=== PATIENT | male | born 1935 | race Caucasian/White ===

== ENCOUNTER 2016-10-27 08:36 | Outpatient (CLI) | END 2016-10-27 08:37 | disposition home or self-care (01) | LOC: AMBL 08:36 | PROVIDERS: ATTEND Emergency Medicine | DX: R07.9 Chest pain, unspecified (principal); R19.7 Diarrhea, unspecified; C34.90 Malignant neoplasm of unspecified part of unspecified bronchus or lung; E86.0 Dehydration; Z99.81 Dependence on supplemental oxygen; Z95.1 Presence of aortocoronary bypass graft; Z95.5 Presence of coronary angioplasty implant and graft; Z79.899 Other long term (current) drug therapy ==

== ENCOUNTER 2016-10-29 12:06 | Outpatient (CLI) ==
[2016-10-29] MEDS: NEUPOGEN SUBCUT STA (12:19)
== END 2016-10-29 12:07 | disposition home or self-care (01) ==
LOC: OPMED 12:06
PROVIDERS: ATTEND Internal Medicine Hematology & Oncology
DX: C34.92 Malignant neoplasm of unspecified part of left bronchus or lung (principal); D70.1 Agranulocytosis secondary to cancer chemotherapy
CPT/HCPCS: 96372

== ENCOUNTER 2016-10-30 13:01 | Outpatient (CLI) ==
[2016-10-30] MEDS ORDERED: NEUPOGEN ONE (13:11)
[2016-10-30] MEDS: NEUPOGEN SUBCUT STA (13:13)
== END 2016-10-30 13:02 | disposition home or self-care (01) ==
LOC: OPMED 13:01
PROVIDERS: ATTEND Internal Medicine Hematology & Oncology
DX: C34.92 Malignant neoplasm of unspecified part of left bronchus or lung (principal); D70.1 Agranulocytosis secondary to cancer chemotherapy
CPT/HCPCS: 96372

== ENCOUNTER 2016-10-31 11:09 | Outpatient (CLI) | payer OTHER ==
[2016-10-31 11:26] LABS: BASOPHILS % (AUTO) 0.1 % (0.0-3.0); EOSINOPHILS # (AUTO) 0.1 K/ul (0.0-0.7); EOSINOPHILS % (AUTO) 0.7 % (0.0-7.0); HEMATOCRIT 31.3 % (42.0-52.0); HEMOGLOBIN 10.3 g/dl (14.0-18.0); IMMATURE GRANULOCYTE % (AUTO) 8.9 % (0.0-5.0); LYMPHOCYTES # (AUTO) 2.2 K/uL (0.60-3.4); LYMPHOCYTES % (AUTO) 16.4 (10.0-50.0); MEAN CORPUSCULAR HEMOGLOBIN 28.7 pg (27.0-31.0); MEAN CORPUSCULAR HGB CONC 32.9 (31.8-35.4); MEAN CORPUSCULAR VOLUME 87.2 fl (80.0-94.0); MONOCYTES # (AUTO) 0.8 K/uL (0.4-2.0); MONOCYTES % (AUTO) 5.9 (0-10); NEUTROPHILS # (AUTO) 8.9 K/ul (2.0-6.9); PLATELET COUNT 82 10^3/uL (140-440); RED BLOOD COUNT 3.59 10^6/ul (4.70-6.10); WHITE BLOOD COUNT 13.12 K/ul (4.2-10.2)
== END 2016-10-31 11:10 | disposition home or self-care (01) ==
LOC: LAB 11:09
PROVIDERS: ATTEND Internal Medicine Hematology & Oncology
DX: C34.92 Malignant neoplasm of unspecified part of left bronchus or lung (principal); D70.9 Neutropenia, unspecified
CPT/HCPCS: 36415; 85025

== ENCOUNTER 2018-06-19 07:25 | Outpatient (CLI) | END 2018-06-19 07:41 | disposition short-term general hospital (02) | LOC: AMBL 07:25 | PROVIDERS: ATTEND Emergency Medicine | DX: R40.4 Transient alteration of awareness (principal); R06.03 Acute respiratory distress; S00.81XA Abrasion of other part of head, initial encounter; S01.21XA Laceration without foreign body of nose, initial encounter; C34.90 Malignant neoplasm of unspecified part of unspecified bronchus or lung; R00.0 Tachycardia, unspecified; G40.409 Other generalized epilepsy and epileptic syndromes, not intractable, without status epilepticus; R40.2421 Glasgow coma scale score 9-12, in the field [EMT or ambulance]; W19.XXXA Unspecified fall, initial encounter; Z99.81 Dependence on supplemental oxygen ==